=== PATIENT | female | born 1945 | race Caucasian/White ===

== ENCOUNTER → 2021-01-31 11:03 | Outpatient (CLI) | payer MEDICARE, SELFPAY ==
--- NOTE | ~2021-01-31 | MM_ITS ---
EXAMINATION: MM screening [facility] BI w kailey HISTORY: Screening TECHNIQUE: Craniocaudal and mediolateral oblique 3-D tomosynthesis images were obtained and synthetic 2-D images were generated. CAD analysis was submitted and interpreted. COMPARISON: Comparison to multiple prior studies sequentially, with oldest reviewed study dated 04/03. BREAST PARENCHYMAL COMPOSITION: There are scattered areas of fibroglandular density. FINDINGS: There is no evidence of suspicious mass, calcification, or architectural distortion to sugg est malignancy in either breast. There has been no suspicious interval change. IMPRESSION: 1. No mammographic evidence of malignancy. 2. Recommend routine screening mammography in one year. BI-RADS Category 1: Negative Reviewed, dictated and finalized at location A.
== END ==
PROVIDERS: PCP Internal Medicine; Visit Provider Internal Medicine
DX: Z12.31 Encounter for screening mammogram for malignant neoplasm of breast (principal)
CPT/HCPCS: 77063; 77067

== ENCOUNTER 2022-03-26 08:04 | Emergency (ER) | payer MEDICARE, SELFPAY ==
[2022-03-26] VITALS (9 sets, daily range): BP systolic 131–180; BP diastolic 54–89; PULSE 61–95; RESP 8–17; TEMP 36.9; O2SAT 94–100
--- NOTE | ~2022-03-26 | CT_ITS ---
EXAMINATION: CTA chest PE protocol DATE: 03/26/2022 09:18 INDICATION: Chest pain with deep inspiration TECHNIQUE: Computed tomography (CT) pulmonary angiogram of the chest was performed with 100 mL Omnipa que-350 intravenous contrast. Additional 3D reconstructions utilizing coronal maximum intensity proje ction (MIP) were performed. Automated exposure control and iterative reconstruction technique were em ployed. The dose-length product was 225.66 mGy-cm. COMPARISON: None FINDINGS: Excellent contrast opacification of the pulmonary arteries. There is mild streak artifact from dense contrast in the superior vena cava and right atrium. Minimal motion artifact which does not significa ntly limit evaluation. No pulmonary embolism. Mildly decreased lung volumes with mild dependent atele ctasis in the bilateral lower lobes, right greater than left. Small patchy centrilobular opacities wi th associated bronchiectatic versus cystic lung disease at the dependent lingula consistent with pneu monia. No pulmonary edema, pleural effusion or pneumothorax. Borderline heart size. No pericardial ef fusion. Thoracic aorta is normal in caliber with no dissection. No pathologically enlarged thoracic l ymphadenopathy. Visualized upper abdomen is unremarkable. Bones are unremarkable IMPRESSION: 1. Lingular pneumonia. No pulmonary embolism. Reviewed, dictated and finalized at location A. [employer]TER PROGRAMMING PROFESS[employer]
[2022-03-26 08:47] LABS: Basophils Percent Auto 0.3 % (0.2-1.2); Eosinophils Percent Auto 0.5 % (0-4.4); Hematocrit 42.3 % (37.0-47.0); Hemoglobin 13.6 g/dL (12.0-15.0); Immature Granulocyte Absolute 0.04 K/mm3 (0.00-0.031); Lymphocytes Absolute Auto 1.26 K/mm3 (0.9-3.2); Lymphocytes Percent Auto 31.7 % (18.3-44.2); Mean Corpuscular HGB Conc 32.2 g/dl (32-36); Mean Corpuscular Hemoglobin 28.8 pg (26-34); Mean Corpuscular Volume 89.6 fl (80-100); Mean Platelet Volume 10.6 fl (7.4-10.4); Monocytes Absolute Auto 0.5 K/mm3 (0.1-0.6); Monocytes Percent Auto 12.6 % (2.6-8.5); Neutrophils Absolute Auto 2.1 K/mm3 (1.3-6.7); Neutrophils Percent Auto 53.9 % (45.5-73.1); Platelet Count Result 187 k/mm3 (150-375); Red Blood Count 4.72 M/mm3 (4.2-5.4); Red Cell Distribution Width 13.4 % (11.5-14.5)
[2022-03-26] MEDS: KETOROLAC 15 MG/ML VIAL (*BKC) IV PUSH (08:51)
[2022-03-26 08:58] LABS: Prothrombin Time 13.2 Seconds (11.1-14.7)
[2022-03-26 09:00] LABS: Alanine Aminotransferase 17 U/L (6-35); Albumin Level 4.3 g/dL (3.5-5.1); Alkaline Phosphatase 72 U/L (38-126); Anion Gap 8 mmol/L (8-16); Aspartate Amino Transferase 22 U/L (14-36); Bilirubin,Total 0.7 mg/dL (0.2-1.3); Blood Urea Nitrogen 11 mg/dL (7-17); Calcium 8.9 mg/dL (8.4-10.2); Carbon Dioxide 28 mmol/L (22-30); Chloride 104 mmol/L (98-107); Estimated CRCL calculation 62 ml/min; Estimated Glomerular Filt Rate > 60; Glucose 101 mg/dL (65-110); Partial Thromboplastin Time 26.7 SECONDS (22.3-36.8); Potassium 3.7 mmol/L (3.4-5.0); Sodium 140 mmol/L (137-145)
[2022-03-26 09:12] LABS: Troponin I < 0.012 ng/mL (0.000-0.034)
--- NOTE | 2022-03-26 11:00 | ED.ABDPAIN ---
HPI - Abdominal Pain General Chief Complaint: Abdominal Pain Stated Complaint: RUQ pain Time Seen by Provider: 03/26/22 08:21 History of Present Illness HPI narrative: Patient is a 77-year-old female who presents to the ER with pain to the right anterior lateral chest. No shortness of breath. She has no pain with deep breath. Occasional cough. No known sick contacts. No lower extremity swelling and pain. No history of blood clots. Patient did recently have left carpal tunnel surgery. No long distance travel. Related Data Allergies Allergy/AdvReac Type Severity Reaction Status Date / Time No Known Allergies Allergy Verified 03/26/22 08:35 Review of Systems Review of Systems: All systems reviewed & are unremarkable except as noted in HPI and below Constitutional: Constitutional: Denies chills, Denies fatigue and Denies fever(s) ENT: Denies nasal congestion and Denies sore throat Cardiovascular: Cardiovascular: Reports chest pain, Denies rapid heart rate and Denies radiating jaw, neck or arm pain Respiratory: Respiratory: Reports cough Comments: Pain with deep breath Gastrointestinal: Gastrointestinal: Denies abdominal pain, Denies nausea and Denies vomiting Genitourinary: Genitourinary: Denies nocturia, Denies dysuria and Denies flank pain PMFSH Past Medical History Medical History (Updated 03/26/22 @ 11:08 by Abdiel Killian MD) Healthy female adult Surgical History Surgical History (Updated 03/26/22 @ 11:06 by Abdiel Killian MD) History of carpal tunnel surgery History of hip replacement Social History Social History (Updated 03/26/22 @ 11:06 by Abdiel Killian MD) Smoking status: Never smoker Exam Narrative: GENERAL: Well-appearing, well-nourished, and in no acute distress. HEAD: Normocephalic, atraumatic. EYES: PERRL and EOMI. CHEST: Clear to auscultation. No respiratory distress. Mild tenderness right anterior lateral chest wall. No evidence of trauma or shingles. HEART: Regular rate and rhythm. Normal peripheral pulses. ABDOMEN: Soft, nontender, nondistended. EXTREMITIES: Normal range of motion. No edema. SKIN: Warm, dry, no rash. NEURO: Alert and oriented x3. PSYCH: Normal mood and affect. Course Course Emergency Course: Patient resting comfortably. Informed of results. Discharge home. Vital Signs Vital signs: Vital Signs Temperature 98.4 F 03/26/22 08:28 Pulse Rate 95 03/26/22 08:28 Respiratory Rate 16 03/26/22 08:28 Blood Pressure 169/89 H 03/26/22 08:28 Pulse Oximetry 96 03/26/22 08:28 Temperature 98.4 F 03/26/22 08:28 Pulse Rate 95 03/26/22 08:28 Respiratory Rate 16 03/26/22 08:28 Blood Pressure 169/89 H 03/26/22 08:28 Pulse Oximetry 96 03/26/22 08:28 MDM - Abdominal Pain Lab Data Result diagrams: 03/26/22 08:38 03/26/22 08:38 Labs: Lab Results 03/26/22 03/26/22 03/26/22 Range/Units 08:38 08:38 08:38 WBC 4.0 L (4.5-10.0) K/mm3 RBC 4.72 (4.2-5.4) M/mm3 Hgb 13.6 (12.0-15.0) g/dL Hct 42.3 (37.0-47.0) % MCV 89.6 (80-100) fl MCH 28.8 (26-34) pg MCHC 32.2 (32-36) g/dl RDW 13.4 (11.5-14.5) % Plt Count 187 (150-375) k/mm3 MPV 10.6 H (7.4-10.4) fl Immature Gran % (Auto) 1.0 H (0-0.5) % Neut % (Auto) 53.9 (45.5-73.1) % Lymph % (Auto) 31.7 (18.3-44.2) % Graves % (Auto) 12.6 H (2.6-8.5) % Eos % (Auto) 0.5 (0-4.4) % Baso % (Auto) 0.3 (0.2-1.2) % Lymph # (Auto) 1.26 (0.9-3.2) K/mm3 Graves # (Auto) 0.5 (0.1-0.6) K/mm3 Eos # (Auto) 0.0 (0-0.3) K/mm3 Baso # (Auto) 0.0 (0.0-0.1) K/mm3 Abs Immat Gran (auto) 0.04 H (0.00-0.031) K/mm3 Absolute Neuts (auto) 2.1 (1.3-6.7) K/mm3 Absolute Nucleated RBC 0.0 (0.0-0.012) K/mm3 Nucleated RBC % 0.0 (0.0-0.2) % PT 13.2 (11.1-14.7) Seconds INR 1.0 APTT 26.7 (22.3-36.8) SECONDS Sodium 140 (137-145) mmol/L Potass
== END 2022-03-26 11:27 | disposition home or self-care (01) ==
PROVIDERS: Emergency Provider Emergency Medicine; PCP Internal Medicine
DX: R07.89 Other chest pain (principal); Z96.649 Presence of unspecified artificial hip joint; J18.9 Pneumonia, unspecified organism
CPT/HCPCS: 36415; 71275; 80053; 84484; 85025; 85610; 85730; 96374; 99284; J1885; Q9967

== ENCOUNTER 2022-12-26 08:36 | Outpatient (CLI) | payer MEDICARE, SELFPAY ==
--- NOTE | ~2022-12-26 | MMUS_ITS ---
EXAMINATION: MM diagnostic joanna BI w kailey, US breast RT limited HISTORY: Palpable right breast abnormality TECHNIQUE: Additional 3-D tomosynthesis images of the breasts were performed and synthetic 2-D images were generated. CAD analysis was submitted and interpreted. High resolution Limited right breast ult rasound was performed. COMPARISON: Comparison to multiple prior studies sequentially, with oldest reviewed study dated 12/19. BREAST PARENCHYMAL COMPOSITION: Breast composed of scattered areas of fibroglandular density FINDINGS: MAMMOGRAPHIC FINDINGS: There are no suspicious masses, calcifications or architectural distortion in either breast to sugges t malignancy. The breasts are stable. ULTRASOUND: Limited right breast ultrasound: At 12:00, 2-3 cm from the nipple in the area palpable concern there is an antiparallel hypoechoic mass measuring 4 x 4 x 3 mm without posterior features or internal vasc ularity. IMPRESSION: 1. Antiparallel 4 mm right breast mass in the area palpable concern at 12:00, 2-3 cm from the nipple. 2. Ultrasound-guided right breast biopsy recommended. BI-RADS category 4, suspicious findings. Reviewed, dictated and finalized at location B. IMPRESSION: 1. Antiparallel 4 mm right breast mass in the area palpable concern at 12:00, 2 -3 cm from the nipple. 2. Ultrasound-guided right breast biopsy recommended. BI-RADS category 4, suspicious findings.
== END 2022-12-26 08:37 | disposition home or self-care (01) ==
LOC: CHSIMG 08:38
PROVIDERS: PCP Internal Medicine; Visit Provider Obstetrics & Gynecology
DX: N63.15 Unspecified lump in the right breast, overlapping quadrants (principal); R92.8 Other abnormal and inconclusive findings on diagnostic imaging of breast
CPT/HCPCS: 76642; 77062; 77066; G0279

== ENCOUNTER 2023-01-20 10:00 | Outpatient (CLI) | payer MEDICARE, SELFPAY ==
--- NOTE | ~2023-01-20 | US_ITS ---
US breast RT limited 01/20/2023 11:29 Indication: Right breast mass seen on prior examination. Biopsy recommended. Procedure: High-resolution Limited ultrasound of the right breast. Dr. Gómez was present during and pe rsonally performed the examination. Comparison: 12/26/2022 Findings: At 12:00, 2-3 cm from the nipple there is an oval hypoechoic mass with low level internal e choes measuring 4 mm. This mass appears to be contiguous with an adjacent duct and most likely repres ents a benign minimally complicated cyst or focal ductal dilation. Findings discussed with the patien t at the time of the examination. Impression: 1: Probable benign 4 mm right breast mass at 12:00, 2-3 cm from the nipple. BI-RADS CATEGORY 3-PROBABLY BENIGN FINDING RECOMMENDATION: 6 month follow-up diagnostic right mammogram and Limited right breast ultrasound eduin mmended. Reviewed, dictated and finalized at location A. Impression: 1: Probable benign 4 mm right breast mass at 12:00, 2-3 cm from the nipple. BI-RADS CATEGORY 3-PROBABLY BENIGN FINDING RECOMMENDATION: 6 month follow-up diagnostic right mammogram and Limited right breast ultrasound recommended.
== END 2023-01-20 10:01 | disposition home or self-care (01) ==
PROVIDERS: PCP Internal Medicine; Visit Provider Physician Assistant Surgical
DX: N63.15 Unspecified lump in the right breast, overlapping quadrants (principal)
CPT/HCPCS: 76642

== ENCOUNTER 2023-08-03 09:36 | Outpatient (CLI) | payer MEDICARE, SELFPAY ==
--- NOTE | ~2023-08-03 | US_ITS ---
US breast RT limited 08/03/2023 09:58 Indication: Follow-up right breast mass Procedure: High-resolution Limited ultrasound of the right breast Comparison: Comparison to multiple prior studies sequentially, with oldest reviewed study dated 12/26. Findings: At 12:00, 3 cm from the nipple there is a stable 4 mm cyst. No suspicious masses to suggest malignancy. Impression: 1: Stable benign 4 mm right breast cyst at 12:00, 3 cm from the nipple. Routine yearly screening mammogram and regular clinical breast examination are recommended. BI-RADS CATEGORY 2 - BENIGN FINDINGS Reviewed, dictated and finalized at location B. Impression: 1: Stable benign 4 mm right breast cyst at 12:00, 3 cm from the nipple. Routine yearly screening mammogram and regular clinical breast examination are recommended. BI-RADS CATEGORY 2 - BENIGN FINDINGS
== END 2023-08-03 09:37 | disposition home or self-care (01) ==
LOC: ANHIMG 09:37
PROVIDERS: PCP Internal Medicine; Visit Provider Surgery
DX: R92.8 Other abnormal and inconclusive findings on diagnostic imaging of breast (principal)
CPT/HCPCS: 76642

== ENCOUNTER 2023-12-29 11:50 | Outpatient (CLI) | payer MEDICARE, SELFPAY ==
[2023-12-29 12:31] LABS: Basophils Percent Auto 0.5 % (0.2-1.2); Eosinophils Absolute Auto 0.1 K/mm3 (0-0.3); Eosinophils Percent Auto 1.7 % (0-4.4); Hematocrit 40.8 % (37.0-47.0); Hemoglobin 13.3 g/dL (12.0-15.0); Immature Granulocyte Absolute 0.04 K/mm3 (0.00-0.031); Lymphocytes Absolute Auto 1.32 K/mm3 (0.9-3.2); Lymphocytes Percent Auto 32.3 % (18.3-44.2); Mean Corpuscular HGB Conc 32.6 g/dl (32-36); Mean Corpuscular Hemoglobin 28.7 pg (26-34); Mean Corpuscular Volume 87.9 fl (80-100); Mean Platelet Volume 10.7 fl (7.4-10.4); Monocytes Absolute Auto 0.5 K/mm3 (0.1-0.6); Neutrophils Absolute Auto 2.2 K/mm3 (1.3-6.7); Neutrophils Percent Auto 53.5 % (45.5-73.1); Platelet Count Result 219 k/mm3 (150-375); Red Blood Count 4.64 M/mm3 (4.2-5.4); Red Cell Distribution Width 13.5 % (11.5-14.5); White Blood Count 4.1 K/mm3 (4.5-10.0)
[2023-12-29 16:32] LABS: Iron 76 ug/dL (37-170)
[2023-12-29 16:42] LABS: Alanine Aminotransferase 21 U/L (6-35); Albumin Level 4.2 g/dL (3.5-5.1); Alkaline Phosphatase 58 U/L (38-126); Anion Gap 9 mmol/L (4-12); Aspartate Amino Transferase 27 U/L (14-36); Bilirubin,Total 0.5 mg/dL (0.2-1.3); Blood Urea Nitrogen 20 mg/dL (7-17); Calcium 9.3 mg/dL (8.4-10.2); Carbon Dioxide 31 mmol/L (22-30); Chloride 99 mmol/L (98-107); Estimated Glomerular Filt Rate > 60; Glucose 99 mg/dL (65-110); Potassium 4.2 mmol/L (3.4-5.0); Sodium 139 mmol/L (137-145)
[2023-12-29 16:44] LABS: Percent Iron Saturation 26 % (20-50)
[2023-12-29 17:50] LABS: Folic Acid > 20.0 ng/mL (2.76->20); Vitamin B12 > 1000.0 pg/mL (239-931)
[2024-01-01 12:03] LABS: Methylmalonic Acid 146 nmol/L (69-390)
== END 2023-12-29 11:51 | disposition home or self-care (01) ==
LOC: ANHLAB 11:52
PROVIDERS: Nurse Practitioner Family; PCP Internal Medicine; Visit Provider Internal Medicine Hematology & Oncology
DX: D70.9 Neutropenia, unspecified (principal); D50.9 Iron deficiency anemia, unspecified
CPT/HCPCS: 36415; 80053; 82607; 82728; 82746; 83540; 83550; 83921; 85025; 86038; 86039; 88184

== ENCOUNTER 2024-01-11 14:28 | Outpatient (CLI) | payer MEDICARE, SELFPAY ==
--- NOTE | ~2024-01-11 | US_ITS ---
EXAMINATION: US abdomen complete DATE: 01/11/2024 15:36 INDICATION: Neutropenia TECHNIQUE: Multiple grayscale and Doppler ultrasound images of the abdomen were obtained. COMPARISON: None available. FINDINGS: 3 mm pancreatic duct. No pancreatic mass. The liver is normal with normal echogenicity and echotexture. No surface nodularity. Normal hepatopetal flow in the main portal vein. The gallbladder is normal with no abnormal wall thickening, pericholecystic fluid or stones. The common bile duct anderson sures 3 mm. There was no sonographic Delarosa sign. The visualized portions of the aorta and inferior v ronan cava are normal. The right kidney measures 9.8 x 4.7 x 5.0 cm. And contains a simple 1 cm cyst The left kidney measure s 9.5 x 5.5 x 4.9 cm. The kidneys demonstrate normal parenchymal echogenicity. There is no hydronephr osis. The spleen is normal in appearance and measures 8.7 cm. IMPRESSION: 3 mm pancreatic duct, presumably chronic and of doubtful clinical significance. Correlate with pancre atic labs. Otherwise normal abdominal ultrasound findings. Reviewed, dictated and finalized at location K. IMPRESSION: 3 mm pancreatic duct, presumably chronic and of doubtful clinical significance. Correlate with pancreatic labs. Otherwise normal abdominal ultrasound findings.
== END 2024-01-11 14:29 | disposition home or self-care (01) ==
PROVIDERS: PCP Internal Medicine; Visit Provider Nurse Practitioner Family
DX: D70.9 Neutropenia, unspecified (principal)
CPT/HCPCS: 76700

== ENCOUNTER 2024-09-20 09:45 | Outpatient (CLI) | payer MEDICARE, SELFPAY ==
--- OUTSIDE RECORDS SUMMARY | 2024-09-20 10:01 | XMS_ITS | Data Portability ---
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 Plan of Treatment Reminders Order Date Submit Date Provider Last Modified By Organization Details Last Modified Time Details Appointments None recorded. Lab None recorded. Referral None recorded. Procedures injection/a spiration, large joint or bursa, with ultrasound guidance (PROC) 2018 019 [email or web address] Not available 9 12:16:42 Surgeries None recorded. Imaging US, lower extremity, nonvascular 2018 019 [email or web address] Not available 9 14:32:07 XR, hip, unilateral - room 14 2017 018 [email or web address] Not available 8 14:34:49 US, lower extremity, nonvascular 2017 018 [email or web address] Not available 8 14:34:49 Medication Orders Depo-Medrol 40 mg/mL suspension for injection 2018 019 [email or web address] [facility], [address] [place], [address], 9 12:30:38 hydrocodone 5 mg-acetamin ophen 325 mg tablet 2017 018 [email or web address] [facility], [address] [place], [address], 8 15:31:32 hydrocodone 5 mg-acetamin ophen 325 mg tablet 2015 016 [facility] [address], [address] [place], [address], 6 04:28:28 Patient TargetsNo targets recorded. Patient Instructions Encounter Date Encounter Id Patient Instructions Last Modified By Organization Details Last Modified Time 03/07/2016 [id number] hip pain: care instructions [email or web address] Not available 03/10/2016 10:23:07 Reason for Referral None Reported. Problems Name Problem SNOMED Code Status Onset Date Resolution Date Notes Provider Name and Address Organization Details Recorded Time Low back pain 898408037 Active Toni Parekh Merku, [facility] 6 16:19:39 Pain of hip region 55939870 Active Toni Noeldomenica [employer] [facility], [facility] 6 16:19:39 Osteoarthritis of hip 823330955 Active Toni Noeldomenica Merku, [facility] 6 16:19:39 Problem Notes None recorded. Procedures Surgical History Date Name Laterality Status Provider Name and Address Organization Details Recorded Time 8 Generic [place] [address], [address] [place] [address], [employer], [facility] 02/22/2018 15:13:22 6 Generic [place] [address], [address] [place] [address], [employer], [facility] 03/07/2016 15:21:03 Orthopedic Surgery completed Marlena Cortes [email or web address], [employer] 10/25/2015 12:13:04 Other completed Marlena Cortes [facility] [employer] [employer], [facility] 10/25/2015 12:13:04 Imaging Results None recorded. Procedure Notes None recorded. Medical Equipment None Reported. Allergies Allergen ID Allergen Name Allergen Category Reaction Reaction Severity Criticality Documentation Date Start Date Code Code System Note Provider Name and Address Organization Details Recorded Time 39492 codeine medicatio n dizziness Not available Not available 10/25/2015 2670 RxNorm Marlena Cortes bridgette [facility] 6 12:13:04 Medications Name Sig Start Date Stop Date Status Note LastModified by Organization Details LastModified Time Depo-Medrol 40 mg/mL suspension for injection Take by injection route. 2018 active Not Available Not Available Not Avai lable hydrocodone 5 mg-acetaminop hen 325 mg tablet take 1 tabs q 6 hrs prn 2017 active Not Available Not Available Not Avai lable diazepam 10 mg tablet Take 1 tablet(s) 90 mins PRIOR to treatment. Repeat Q hr PRN anxiety 2015 active Not Available Not Available Not Avai lable Aleve 220 mg capsule Take 1 capsule twice a day by oral route. active Not Available Not Available No t Available Vitals Date Recorded Body height Body weight Body mass index (BMI) Heart rate Systolic blood pressure Diastolic blood pressure Provider Name and Address Organization Details Last Updated DateTime 6 167.64 cm 67555.8 2 g 25 kg/m2 85 /min 150 mm[Hg] 84 mm[Hg] Carmen Snvibha [facility] 6 10:19:34 Date Recorded Body height Provider Name an d Address Organization Details Last Updated DateTime 05/02/2016 167.64 cm Rolandoirina Danielito [facility] 05/02/2016 11:07:34 Date Recorded Body height Body mass index (BMI) Body weight Provider Name and Address Organization Details Last Updated DateTime 02/16/2018 167.64 cm 24.5 kg/m2 10669.04 g Carmen Snvibha [facility] 02/16/2018 12:15:57 Date Recorded Body height Body mass index (BMI) Body weight Heart rate Systolic blood pressure Diastolic blood pressure Provider Name and Address Organization Details Last Updated DateTime 8 167.64 cm 24.5 kg/m2 94348.0 4 g 76 /min 174 mm[Hg] 80 mm[Hg] Carmen vibha [facility] 8 14:23:39 Date Recorded Body height Body mass index (BMI) Body weight Heart rate Systolic blood pressure Diastolic blood pressure Provider Name and Address Organization Details Last Updated DateTime 05/14/201 9 167.64 cm 24.2 kg/m2 76996.8 6 g 76 /min 163 mm[Hg] 78 mm[Hg] Arnulfo Lujanosvaldo [facility] [employer] [facility], [facility] 9 11:40:35 Social History Question Answer Notes LastModified by [employer] Details LastModified Time Tobacco Smoking Status Former Smoker Marlena Cortes bridgette [facility] [employer] [facility], [facility] 10/25/2015 12:14:20 Marital Status Informatio n not available 10/25/2015 What Was The Date Of Your Most Recent Tobacco Screening? 09/14/2018 Information n ot available 11/25/2018 How Many Years Have You Smoked Tobacco? 10 [email or web address] Information not available 10/25/2015 Sex: Unknown Functional Status Question Answer Note LastModified by Organizat ion Details LastModified Time What is your level of alcohol consumption? Occasional Information not available 10/25/2015 What is your occupation? Retired Information not available 10/25/2015 Mental Status None recorded. Family History Relationship Description Onset Age of this Age Resolved Age Notes LastModified by Organization Details LastModified Time Father Hypertensive disorder [email or web address] Not available 2015 12:14:20 Medical History Condition Response Coronary Artery Disease N HIV or AIDS N Gout N Kidney Stones N Hyperthyroidism N Head Trauma/Injury N Hernia N Depression N COPD N Blood Clots N Lung Disease N Hypothyroidism N Pacemaker N Anxiety Disorder N Arthritis Y Cancer N Stroke N Neck Injury N Leg or Foot Ulcers N High Cholesterol N Liver Disease N Rheumatoid Arthritis N Headaches N Fibromyalgia N Kidney Disease N Heart Problems N Migraines N Thyroid Problems N Anemia N Multiple Sclerosis N Ulcers N Heart Attack ([place]) N Diabetes N Bleeding Disorder N Seizures/Epilepsy N Tuberculosis N Urinary Tract Infection N Back Problems N Diverticulitis N Asthma N Lupus N Peripheral Vascular Disease N Sleep Disorder N GERD/Reflux N Hepatitis N Aneurysm N Heart Disease N Pulmonary Embolism N Hypertension N Osteoporosis N Gynecological HistoryNo gynecological history recorded. Obstetrics History GPAL:G 0 P 0 0 0 0 Past Encounters Encounter ID Performer Location Encounter Start Date Encounter Closed Date Diagnosis/Indication Diagnosis SNOMED-CT Code Diagnosis ICD10 Code Diagnosis Note [id number] Venkatesh Andrade MD [facility] [address] [facility] ,[address] [place] [address] 10/25/2015 11:49:56 10/25/2015 14:35:20 Low back pain 570465056 M54.5 Pain of hip region 39590 002 M25.552 Osteoarthritis of hip 23 1456971 M16.12 [id number] Venkatesh Andrade MD [facility] [address] [place] [id number] 01/28/2016 09:49:23 01/28/2016 12:47:56 Osteoarthritis of hip 876216142 M16.12 [id number] Venkatesh Andrade MD [facility] [address] [place] [id number] 03/07/2016 09:24:45 03/10/2016 11:04:02 Pain of hip region 07105759 M25.552 [id number] Venkatesh Andrade MD [facility] [address] [place] [address] 05/02/2016 10:41:21 05/02/2016 14:15:26 [id number] Venkatesh Andrade MD [facility] [address] [place] [address] 02/16/2018 10:41:18 02/16/2018 14:34:49 Pain of hip region 41651000 M25.552 [id number] Venkatesh Andrade MD [facility] [address] [place] [address] 02/22/2018 13:29:32 02/22/2018 16:06:01 Pain of hip region 87997304 M25.552 [id number] Venkatesh Andrade MD [facility] [address] [place] [id number] 09/14/2018 11:08:01 09/14/2018 14:32:06 Osteoarthritis of left hip joint 7247547355 47928 M16.12 Health Concerns Section Related Observation LastModified by Organization Detai ls LastModified Time None Recorded Concern Status LastModified by Organization Details LastModified Time None Recorded Advance Directives Directive None Recorded Payers Encounter Date Sequence Insurance Name Policy Number Policy Golden Covered Member ID Golden Member ID Guarantor Name 03/07/2016 1 MEDICARE [place]: [place] Jovita Urrutia [id number] Jovita Urrutia 03/07/2016 2 [employer] [place] (MEDICARE SUPPLEMENT) Jovita Urrutia [id number] Jovita Urrutia 05/02/2016 1 MEDICARE [place]: [place] Jovita Urrutia [id number] Jovitaguillermo Urrutia 05/02/2016 2 [employer] [place] (MEDICARE SUPPLEMENT) Jovita Urrutia [id number] Jovitaguillermo Urrutia 02/16/2018 1 MEDICARE [place]: [place] Jovita Urrutia [id number] Jovitaguillermo Urrutia 02/16/2018 2 [employer] [place] (MEDICARE SUPPLEMENT) Jovita Feliz Urrutia [id number] Jovita Urrutia 02/22/2018 1 MEDICARE [place]: [place] Jovita Urrutia [id number] Jovitaguillermo Urrutia 02/22/2018 2 [employer] [place] (MEDICARE SUPPLEMENT) Jovita Feliz Urrutia [id number] Jovita Urrutia 09/14/2018 1 MEDICARE [place]: [place] Jovita Urrutia [id number] Jovitaguillermo Urrutia 09/14/2018 2 [employer] [place] (MEDICARE SUPPLEMENT) Jovita Feliz Urrutia [id number] Jovita Urrutia OBGyn Episode No OBEpisode recorded.
--- OUTSIDE RECORDS SUMMARY | 2024-09-20 10:01 | XMS_ITS | Clinical Summary ---
Author Organization [facility] Address 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 Active Fish Oil-[place]-3 Fatty Acids 360-1,200 mg Capsule Take 1 Capsule by mouth. Active cyanocobalamin 1,000 mcg Tablet Take 1,000 mcg by mouth daily. Active ascorbic acid, vitamin C, (VITAMIN C) 500 mg tablet Take 500 mg by mouth daily. Active CALCIUM CARBONATE-VITAM IN D3 ORAL Take 50 mcg by mouth daily. Active Active Problems No known active problems Family History Medical History Relation Name Comments No Known Problems Brother 2 brothers No Known Problems Child 1 No Known Problems Child 2 No Known Problems Child 3 Lung Cancer Father Lung Cancer Mother No Known Problems Sister 1 5 sisters Kidney Disease Sister 2 2 sisters Relation Name Status Comments Brother 2 brothers Alive Child 1 Alive Child 2 Alive Child 3 Alive Father Mother Sister 1 5 sisters Alive Sister 2 2 sisters Social History Tobacco Use Types Packs/Day Years Used Date Smoking Tobacco: Former Cigarettes 0.5 2 0 12/28/1961 - 12/29/1963 Smokeless Tobacco: Never Tobacco Cessation:Counseling Given: Not Answered Alcohol Use Standard Drinks/Week Comments Yes 0 (1 standard drink = 0.6 oz pur e alcohol) socially Comments Unknown Sex and Gender Information Value Date Recorded Sex Assigned at Not on file Legal Sex Female 11:58 AM CDT Gender Identity Not on file Sexual Orientation Not on file Last Filed Vital Signs Vital Sign Reading Time Taken Comments Blood Pressure 139/64 01/18/2024 10:00 AM CDT Pulse 70 01/18/2024 9:57 AM CDT Temperature 36.7 C (98 F) 01/18/2024 9:57 AM CDT Respiratory Rate 16 01/18/2024 9:57 AM CDT Oxygen Saturation 94% 01/18/2024 9:57 AM CDT Inhaled Oxygen Concentration - - Weight 74.4 kg (164 lb) 01/18/2024 9:57 AM CDT Height 165.1 cm (5' 5 ) 12/29/2023 10:53 AM CDT Body Mass Index 27.29 12/29/2023 10:53 AM CDT Plan of Treatment Upcoming Encounters Date Type Department Care Team (Late st Contact Info) Description 09/28/2024 2:00 PM CDT Office Visit [facility] Oncology and Hematology - [place] [address] [facility] [address] [place] [address] Chandu Grant MD [address] [facility] [address] [place] [address] Health Maintenance Due Date Last Done Comments DTAP/TDAP/TD VACCINES (1 - Tdap) 02/09/1964 PNEUMOCOCCAL VACCINE 50+ YEA RS (1 of 1 - PCV) 1995 ZOSTER VACCINE (1 of 2) 1995 OSTEOPOROSIS SCREENING 2010 RSV VACCINE (60+ or ) (1 - 1-dose 75+ series) 02/09/2020 INFLUENZA VACCINE (#1) 2023 04/14/2023, 2021 Medicare [place] Prev entative Visit/Annual Wellness Visit 05/04/2024 Insurance [place] [id number] Care Teams Metal Finisher Relationship Specialty Start Date End Date Lambert Boykin MD [address] [address] PCP - General Internal Medicine 12/03/23
--- OUTSIDE RECORDS SUMMARY | 2024-09-20 10:01 | XMS_ITS | CONTINUITY OF CARE DOCUMENT ---
Author Name benignomelissatiti Address Unknown Organization [facility] Address [address] [place] [address] Phone [phone] Care Team Providers Care Church Musician Name Role Phone Adelfo Powell MD Unavailable DAVON MCCARTY MD Unavailable DAVON MCCARTY MD Unavailable PROBLEMS Condition Status Date Provider Notes Dyspnea on exertion active Bibiana De Jesus VITAL SIGNS Date Observation Value Provider blood pressure, diastolic 72 mm[Hg] Be norman De Jesus blood pressure, systolic 138 mm[Hg] Rosalva De Jesus FUNCTIONAL STATUS Date Observation Value Provider periodic limb movement index absent (0) Bibiana De Jesus INSURANCE PROVIDERS Payer name Policy type / Coverage type [place] red libertarian [employer] [id number] [place] MEDICARE Medicare [id number] HISTORY OF PROCEDURES Procedure Date Procedure Name Provider Procedure Notes S tatus Stress EKG Tayo Hirsch MD complet ed
[2024-09-20 10:15] LABS: Basophils Percent Auto 0.4 % (0.2-1.2); Eosinophils Percent Auto 0.4 % (0-4.4); Hemoglobin 13.7 g/dL (12.0-15.0); Immature Granulocyte Absolute 0.04 K/mm3 (0.00-0.031); Immature Granulocyte Percent A 0.8 % (0-0.5); Lymphocytes Absolute Auto 1.58 K/mm3 (0.9-3.2); Lymphocytes Percent Auto 30.4 % (18.3-44.2); Mean Corpuscular HGB Conc 31.9 g/dl (32-36); Mean Corpuscular Hemoglobin 28.5 pg (26-34); Mean Corpuscular Volume 89.6 fl (80-100); Mean Platelet Volume 10.7 fl (7.4-10.4); Monocytes Absolute Auto 0.9 K/mm3 (0.1-0.6); Neutrophils Absolute Auto 2.7 K/mm3 (1.3-6.7); Platelet Count Result 193 k/mm3 (150-375); Red Cell Distribution Width 13.8 % (11.5-14.5); White Blood Count 5.2 K/mm3 (4.5-10.0)
[2024-09-20 10:16] LABS: Anion Gap 5 mmol/L (4-12); Blood Urea Nitrogen 17 mg/dL (7-17); Calcium 9.1 mg/dL (8.4-10.2); Carbon Dioxide 33 mmol/L (22-30); Chloride 101 mmol/L (98-107); Estimated Glomerular Filt Rate > 60; Glucose 71 mg/dL (65-110); Potassium 4.2 mmol/L (3.4-5.0); Sodium 139 mmol/L (137-145)
[2024-09-20 11:29] LABS: Folic Acid > 20.0 ng/mL (2.76->20)
== END 2024-09-20 09:46 | disposition home or self-care (01) ==
LOC: ANHLAB 09:49
PROVIDERS: PCP Internal Medicine; Visit Provider Internal Medicine Hematology & Oncology
DX: D70.9 Neutropenia, unspecified (principal)
CPT/HCPCS: 36415; 80048; 82607; 82746; 85025